=== PATIENT | female | born 1950 | race African-American/Black ===

== ENCOUNTER → 2016-12-23 | Outpatient (CLI) | payer BC, OTHER ==
[2016-12-23 15:15] LABS: ALANINE AMINOTRANSFERASE 18 U/L (9-52); ALBUMIN 4.1 g/dL (3.5-5.0); ALKALINE PHOSPHATASE 82 U/L (38-126); ANION GAP 12 (5-19); ASPARTATE AMINO TRANSFERASE 27 U/L (14-36); BILIRUBIN,DIRECT 0.3 mg/dL (0.0-0.4); BILIRUBIN,TOTAL 0.5 mg/dL (0.2-1.3); BLOOD UREA NITROGEN 22 mg/dL (7-20); CARBON DIOXIDE 22 mmol/L (22-30); CHLORIDE 102 mmol/L (98-107); CREATININE RESULT 0.99 mg/dL (0.52-1.25); GLUCOSE 196 mg/dL (75-110); POTASSIUM 5.1 mmol/L (3.6-5.0); SODIUM 136.3 mmol/L (137-145); TOTAL PROTEIN 7.2 g/dL (6.3-8.2)
[2016-12-25 08:38] LABS: CREATININE URINE 68.7 mg/dL (Not Estab.); MICROALBUMIN URINE 74.6 ug/mL (Not Estab.)
== END ==
LOC: CCC 14:33
DX: E11.9 Type 2 diabetes mellitus without complications (principal)
CPT/HCPCS: 36415; 80053; 82043; 82570; 83036

== ENCOUNTER 2017-02-04 18:28 | Emergency (ER) | payer MEDICARE, MEDICAID ==
--- NOTE | 2017-02-04 19:36 | RADIOLOGY REPORT (SQ) ---
EXAM DESCRIPTION: CHEST PA/LAT COMPLETED DATE/TIME: 02/04/2017 7:18 pm REASON FOR STUDY: near syncope COMPARISON: 08/15/2014 EXAM PARAMETERS: NUMBER OF VIEWS: two views TECHNIQUE: Digital Frontal and Lateral radiographic views of the chest acquired. RADIATION DOSE: NA LIMITATIONS: none FINDINGS: LUNGS AND PLEURA: No opacities, masses or pneumothorax. No pleural effusion. MEDIASTINUM AND HILAR STRUCTURES: No masses or contour abnormalities. HEART AND VASCULAR STRUCTURES: Heart normal size. No evidence for failure. BONES: No acute findings. HARDWARE: None in the chest. OTHER: No other significant finding. IMPRESSION: NO SIGNIFICANT RADIOGRAPHIC FINDING IN THE CHEST. TECHNICAL DOCUMENTATION: JOB ID: [id number] [employer]- All Rights Reserved
[2017-02-04] MEDS: NORMAL SALINE 1000 ML 1,000 ML IV PRN ×2 (19:38→19:41)
--- NOTE | 2017-02-04 20:19 | EKG REPORT ---
SEVERITY:- NORMAL ECG - SINUS RHYTHM : Confirmed by: Mauro Irvin MD 04-Feb-2017 20:18:47
[2017-02-04 20:50] LABS: ALANINE AMINOTRANSFERASE 45 U/L (9-52); ALBUMIN 4.4 g/dL (3.5-5.0); ALKALINE PHOSPHATASE 107 U/L (38-126); ANION GAP 15 (5-19); ASPARTATE AMINO TRANSFERASE 155 U/L (14-36); BILIRUBIN,DIRECT 0.6 mg/dL (0.0-0.4); BILIRUBIN,TOTAL 0.8 mg/dL (0.2-1.3); BLOOD UREA NITROGEN 23 mg/dL (7-20); CALCIUM 9.9 mg/dL (8.4-10.2); CARBON DIOXIDE 25 mmol/L (22-30); CHLORIDE 103 mmol/L (98-107); CREATINE KINASE 200 U/L (30-135); CREATININE RESULT 1.14 mg/dL (0.52-1.25); GLUCOSE 72 mg/dL (75-110); POTASSIUM 4.4 mmol/L (3.6-5.0); SODIUM 142.9 mmol/L (137-145); TOTAL PROTEIN 7.3 g/dL (6.3-8.2)
[2017-02-04 21:41] LABS: ABSOLUTE BASOPHILS # (AUTO) 0.1 10^3/uL (0.0-0.2); ABSOLUTE EOSINOPHILS # (AUTO) 0.1 10^3/uL (0.0-0.6); ABSOLUTE LYMPHOCYTES (AUTO) 1.2 10^3/uL (0.5-4.7); ABSOLUTE MONOCYTES (AUTO) 0.7 10^3/uL (0.1-1.4); ABSOLUTE NEUT (AUTO) 4.5 10^3/uL (1.7-8.2); EOSINOPHILS % (AUTO) 2.1 % (0-6); HEMATOCRIT 32.6 % (36.0-47.0); HEMOGLOBIN 10.1 g/dL (12.0-15.5); HGB HCT DIFFERENCE -2.3; LYMPHOCYTES % (AUTO) 18.4 % (13-45); MEAN CORPUSCULAR HEMOGLOBIN 27.5 pg (27.0-33.4); MEAN CORPUSCULAR HGB CONC 31.2 g/dL (32.0-36.0); MEAN CORPUSCULAR VOLUME 88 fl (80-97); MONOCYTES % (AUTO) 10.8 % (3-13); RED BLOOD COUNT 3.69 10^6/uL (3.72-5.28); RED CELL DISTRIBUTION WIDTH 14.7 % (11.5-14.0); SEGMENTED NEUTROPHILS % (AUTO) 67.7 % (42-78); WHITE BLOOD COUNT 6.7 10^3/uL (4.0-10.5)
--- NOTE | 2017-02-04 21:47 | ER Document Report ---
ED Dizziness/Weakness - General Chief Complaint: Dizziness Stated Complaint: DIZZY Time Seen by Provider: 02/04/17 18:51 Notes: The patient is a 66-year-old female, past medical history hypertension, IDDM, presents after she was at work at the [employer], when she fell slightly lightheaded. She sat down, drank water and felt better. When EMS arrived her blood pressure was 109/60 and when she stood up it was 90/50. Patient also had some mild epigastric pain that occurred after she ate lunch, but denies any chest pain, shortness of breath, leg swelling, syncope, nausea, vomiting, back pain, numbness, tingling, blurry visions, ataxia or focal weakness. TRAVEL OUTSIDE OF THE [place] IN LAST 30 DAYS: No - Related Data Allergies/Adverse Reactions: No Known Allergies Allergy (Verified 06/21/12 11:32) Past Medical History - General Information source: Patient - Social History Smoking Status: Current Some Day Smoker Chew tobacco use (# tins/day): No Frequency of alcohol use: Occasional Drug Abuse: None Family History: Reviewed & Not Pertinent - Past Medical History Cardiac Medical History: Reports: Hx Hypercholesterolemia, Hx Hypertension Endocrine Medical History: Reports: Hx Diabetes Mellitus Type 1, Hx Diabetes Mellitus Type 2 Skin Medical History: Reports Hx Cellulitis - Immunizations Immunizations up to date: Yes Hx Diphtheria, Pertussis, Tetanus Vaccination: Yes Review of Systems - Review of Systems Notes: REVIEW OF SYSTEMS: CONSTITUTIONAL: -fevers, -chills EENT: -eye pain, -difficulty swallowing, -nasal congestion CARDIOVASCULAR:-chest pain, -syncope. RESPIRATORY: -cough, -SOB GASTROINTESTINAL: +epigastric abdominal pain, - nausea, -vomiting, -diarrhea GENITOURINARY: -dysuria, -hematuria MUSCULOSKELETAL: -back pain, -neck pain SKIN: -rash or skin lesions. HEMATOLOGIC: -easy bruising or bleeding. LYMPHATIC: -swollen, enlarged glands. NEUROLOGICAL: -altered mental status or loss of consciousness, -headache, - neurologic symptoms PSYCHIATRIC: -anxiety, -depression. ALL OTHER SYSTEMS REVIEWED AND NEGATIVE. Physical Exam - Vital signs Vitals: Temp Pulse Resp BP Pulse Ox 97.7 F 63 20 143/65 H 98 02/04/17 18:37 02/04/17 18:37 02/04/17 18:37 02/04/17 18:37 02/04/17 18:37 - Notes Notes: PHYSICAL EXAMINATION: GENERAL: Well-appearing, well-nourished and in no acute distress. HEAD: Atraumatic, normocephalic. EYES: Pupils equal round and reactive to light, extraocular movements intact, sclera anicteric, conjunctiva are normal. ENT: nares patent, oropharynx clear without exudates. Moist mucous membranes. NECK: Normal range of motion, supple without lymphadenopathy LUNGS: Breath sounds clear to auscultation bilaterally and equal. No wheezes rales or rhonchi. HEART: Regular rate and rhythm without murmurs ABDOMEN: Soft, mild epigastric tenderness, normoactive bowel sounds. No guarding, no rebound. No masses appreciated. EXTREMITIES: Normal range of motion, no pitting or edema. No cyanosis. NEUROLOGICAL: Cranial nerves grossly intact. Normal speech, normal gait. Normal sensory and motor exams. PSYCH: Normal mood, normal affect. SKIN: Warm, Dry, normal turgor, no rashes or lesions noted. Course - Re-evaluation Re-evalutation: Patient appears very well. Her blood pressure after 2 L IV fluids has remained 140's-160's/80's-90's. She is completely asymptomatic at this time. Labs, chest x-ray, EKG and urine do not show any acute abnormality, other than slight evidence of dehydration. Her blood sugar is 72, but patient was fed while in the emergency room. Patient is low risk for serious outcomes using [place] Syncope Guidelines. Given very strict return precautions and she understands. She will follow-up with her primary care physician this week. - Vital Signs Vital signs: Temp Pulse Resp BP Pulse Ox 97.7 F 63 19 165/78 H 98 02/04/17 18:37 02/04/17 18:37 02/04/17 21:02 02/04/17 21:02 02/04/17 21:02 - Laboratory Result Diagrams: 02/04/17 21:11 02/04/17 20:28 Laboratory results interpreted by me: 02/04/17 02/04/17 20:28 21:11 RBC 3.69 L Hgb 10.1 L Hct 32.6 L MCHC 31.2 L RDW 14.7 H BUN 23 H Est GFR ( Amer) 58 L Est GFR (Non-Af Amer) 48 L Glucose 72 L Direct Bilirubin 0.6 H AST 155 H Creatine Kinase 200 H - Diagnostic Test Radiology reviewed: Image reviewed, Reports reviewed Radiology results interpreted by me: CXR: NAD - EKG Interpretation by Me EKG shows normal: Sinus rhythm, [place], Intervals, QRS Complexes, ST-T Waves Rate: Normal Discharge - Discharge Clinical Impression: Light-headed feeling Condition: Stable Disposition: HOME, SELF-CARE Additional Instructions: SYNCOPAL EPISODE: Syncope (fainting or near-fainting) can occur from many different health problems. Or it can be a simple fainting spell requiring no treatment. It is safe for you to go home, but further evaluation will likely be necessary. Your work-up may include tests for internal bleeding, heart disease, medication problems, or near-strokes. Tests are not always required, however, depending on the nature of your problem. The warning signs of an impending faint include: dizziness, lightheadedness , nausea, hot flashes, tingling, and weakness. If this happens, lay down and put your feet up, then wait until all of these symptoms have passed before standing up again. If these episodes become recurrent, or if you develop chest pain, heart palpitations, mental confusion, blurred vision, or headache, then you should call the physician, or go to the emergency room. NEAR SYNCOPAL EPISODE: Syncope or near syncope (fainting or near-fainting) can occur from many different health problems. Or it can be a simple fainting spell requiring no treatment. It is safe for you to go home, but further evaluation will likely be necessary. Your work-up may include tests for internal bleeding, heart disease, medication problems, or near-strokes. Tests are not always required, however, depending on the nature of your problem. The warning signs of an impending faint include: dizziness, lightheadedness , nausea, hot flashes, tingling, and weakness. If this happens, lay down and put your feet up, then wait until all of these symptoms have passed before standing up again. If these episodes become recurrent, or if you develop chest pain, heart palpitations, mental confusion, blurred vision, or headache, then you should call the physician, or go to the emergency room. NORMAL EXAM AND WORKUP: At this time, your examination and workup show no significant abnormality. No significant abnormal physical findings were noted. All laboratory, EKG, and imaging (x-ray, CT scans, ultrasound) studies that were ordered show no significant abnormality. Although your examination and all studies that were ordered showed no significant abnormal finding, there are no examinations and no studies that are 100% accurate. There is always the possibility that some abnormality could exist and not be detected with physical examination or within the limits and capabilities of laboratory and other studies. You should return or follow up as you were instructed on your visit today for further evaluation if your symptoms do not resolve. FOLLOW-UP CARE: If you have been referred to a physician for follow-up care, call the physician s office for an appointment as you were instructed or within the next two days. If you experience worsening or a significant change in your symptoms, notify the physician immediately or return to the Emergency Department at any time for re-evaluation. Forms: Elevated Blood Pressure
[2017-02-04 22:11] VITALS: BP 162/75
== END 2017-02-04 22:22 | disposition home or self-care (01) ==
LOC: ER 18:28
DX: R42 Dizziness and giddiness (principal); R10.13 Epigastric pain; E11.9 Type 2 diabetes mellitus without complications; Z79.4 Long term (current) use of insulin; I10 Essential (primary) hypertension; E78.00 Pure hypercholesterolemia, unspecified
CPT/HCPCS: 93005; 99284; 96360; 36415; 82550; 85025; 80053; 84484; 71020; 93010; J7030

== ENCOUNTER 2018-02-28 12:57 | Emergency (ER) | payer MEDICARE, MEDICAID ==
[2018-02-28] MEDS ORDERED: NORMAL SALINE 1000 ML 1,000 ML IV ONE (14:17)
[2018-02-28] MEDS ORDERED: DIPHENHYDRAMINE HCL 50 MG/ML VIAL IV ONE (14:17)
--- NOTE | 2018-02-28 14:19 | ER Document Report ---
ED Medical Screen (RME) - General TRAVEL OUTSIDE OF THE [place] IN LAST 30 DAYS: No <MARGOT DUMONT - Last Filed: 02/28/18 14:18> <ENEIDA MANZANARES - Last Filed: 02/28/18 19:06> - General Chief Complaint: Facial Swelling Stated Complaint: SHORTNESS OF BREATH Time Seen by Provider: 02/28/18 14:16 Notes: 68 years old male took 1 dose of metronidazole the next day started to swell up on the left side of the face and lips. Therefore present to the ED with difficulty in breathing wheezing. Also having abdominal pain no nausea vomiting. (MARGOT DUMONT) - Related Data Allergies/Adverse Reactions: No Known Allergies Allergy (Verified 02/28/18 13:01) Past Medical History - Social History Chew tobacco use (# tins/day): No Frequency of alcohol use: Occasional Drug Abuse: None - Past Medical History Cardiac Medical History: Reports: Hx Hypercholesterolemia, Hx Hypertension Endocrine Medical History: Reports: Hx Diabetes Mellitus Type 1, Hx Diabetes Mellitus Type 2 Renal/ Medical History: Denies: Hx Peritoneal Dialysis Skin Medical History: Reports Hx Cellulitis - Immunizations Immunizations up to date: Yes Hx Diphtheria, Pertussis, Tetanus Vaccination: Yes <MARGOT DUMONT - Last Filed: 02/28/18 14:18> - Vital signs Vitals: Temp Pulse Resp BP Pulse Ox 98.8 F 75 18 141/55 H 95 02/28/18 13:02 02/28/18 13:02 02/28/18 13:02 02/28/18 13:02 02/28/18 13:02 Course <MARGOT DUMONT - Last Filed: 02/28/18 14:18> - Laboratory Result Diagrams: 02/28/18 15:45 02/28/18 15:45 - Diagnostic Test Radiology reviewed: Reports reviewed - EKG Interpretation by Me EKG shows normal: Sinus rhythm Rate: Normal Rhythm: NSR - Normal axis and intervals. <ENEIDA MANZANARES - Last Filed: 02/28/18 19:06> - Re-evaluation Re-evalutation: 02/28/18 18:46 Patient presented with multiple medical complaints including having redness between her upper medial thighs which on exam was consistent with a yeast infection. Nystatin was provided and she was instructed to use twice a day until resolution. More concerning she had signs and symptoms that appear consistent with angioedema that started after taking metronidazole that was prescribed by her family doctor for this yeast infection although not proper medication for yeast. She is also on an KARISHMA inhibitor she has taken for years. I discussed to discontinue the metronidazole and explained if her symptoms were to continue then likely her KARISHMA inhibitor is causing this as it is known a side effect and she should return immediately to the emergency department for evaluation. She also states that she has been having shortness of breath and on further discussion she states that is been going on for approximately 1 month and she has had bouts of black tarry stools although her fecal occult was negative today. Her hemoglobin has dropped to 7.3 which is approximately 3 points from her baseline. Upon initial evaluation she states that she had recently been flying to [place] and then to [place] so there was concern about blood clots D-dimer test was positive so CTA chest was performed. This was prior to knowing about any dark tarry stools and shortness of breath lasting for over a month. Her travel was only approximately 2 weeks ago. Therefore, her symptoms were present prior to her travel. The CTA was inconclusive due to poor timing of contrast and radiologist recommended re-imaging but there was concern about possible kidney injury for re -contrast in such a short timeframe. After further history taking I do not feel patient's symptoms are consistent with pulmonary embolism as she is not hypoxic she does not have any pleuritic chest pain she is not hypotensive she is not tachycardic. Her symptoms of also been going on for approximately a month and her travel was approximately 2 weeks ago. I feel the risks outweigh the benefit of re-contrast of the patient given her age. Also, if she had any minor clot burden feel like risks would outweigh the rewards of blood thinners with concerns for GI bleed. Findings on CT do show gastric thickening concern for possible neoplasm. Patient was also found to have microcytic anemia, and iron panel was run which showed very low iron levels. Findings of CTA were provided to patient and need for endoscopy was discussed. Discussion was also provided regarding imaging and patient agrees to this plan. Will provide GI referral as well as iron supplementation and Zantac. She is to follow-up with her primary care physician next week to let them know of her emergency department stay. Discussed if she has worsening shortness of breath or any other concerns return to the emergency department for further reevaluation. (ENEIDA MANZANARES) - Vital Signs Vital signs: Temp Pulse Resp BP Pulse Ox 98.8 F 75 22 H 161/105 H 87 L 02/28/18 13:02 02/28/18 13:02 02/28/18 17:02 02/28/18 17:02 02/28/18 17:02 - Laboratory Laboratory results interpreted by me: 02/28/18 02/28/18 02/28/18 15:45 15:45 15:45 RBC 2.93 L Hgb 7.4 L Hct 22.8 L MCV 78 L MCH 25.4 L RDW 17.0 H Retic Count (auto) D-Dimer 2.07 H Sodium 134.0 L Est GFR (Non-Af Amer) 54 L Glucose 186 H Calcium 10.8 H Iron Ferritin Direct Bilirubin 0.6 H Alkaline Phosphatase 145 H Urine Glucose (UA) Urine Ketones 02/28/18 02/28/18 02/28/18 15:45 15:45 17:51 RBC Hgb Hct MCV MCH RDW Retic Count (auto) 2.99 H D-Dimer Sodium Est GFR (Non-Af Amer) Glucose Calcium Iron 19.9 L Ferritin 6.41 L Direct Bilirubin Alkaline Phosphatase Urine Glucose (UA) >=500 H Urine Ketones 20 H Doctor's Discharge <MARGOT DUMONT - Last Filed: 02/28/18 14:18> <ENEIDA MANZANARES - Last Filed: 02/28/18 19:06> - Discharge Clinical Impression: Microcytic anemia, Shortness of breath, Gastric wall thickening Disposition: HOME, SELF-CARE Instructions: Anemia, Iron Deficiency ([facility]), Gastritis ([facility]) Additional Instructions: Per discussion, take all medications as prescribed Follow up with your primary care doctor next week for reevaluation Please call building maintenance superintendent referral to schedule appointment as soon as possible for evaluation of gastric wall thickening found on CT today. Please return to the emergency department for any worsening of symptoms or concerns Prescriptions: Ferrous Sulfate 325 mg PO BID #60 tablet Ranitidine HCl [Zantac] 150 mg PO BID #60 tablet Referrals: YODIT SARABIA MD [ACTIVE STAFF] - Follow up as needed
--- NOTE | 2018-02-28 15:09 | RADIOLOGY REPORT (SQ) ---
EXAM DESCRIPTION: ACUTE ABDOMEN SERIES COMPLETED DATE/TIME: 02/28/2018 2:43 pm REASON FOR STUDY: Abdominal pain COMPARISON: None. NUMBER OF VIEWS: Three views. TECHNIQUE: Frontal chest, supine abdomen and upright/decubitus abdomen radiographic images acquired. LIMITATIONS: None. FINDINGS: CHEST: Lungs clear of infiltrates. FREE AIR: None. No abnormal gas collections. BOWEL GAS PATTERN: Nonobstructive pattern. No dilated loops or air fluid levels. CALCIFICATIONS: No suspicious calcifications. HARDWARE: None in the abdomen. SOFT TISSUES: No gross mass or suggestion of organomegaly. BONES: No acute fracture. No worrisome bone lesions. OTHER: No other significant finding. IMPRESSION: NO RADIOGRAPHIC EVIDENCE FOR ACUTE ABDOMINAL DISEASE. TECHNICAL DOCUMENTATION: JOB ID: [id number] [employer]- All Rights Reserved Reading location - IP/workstation name: [email or web address]
[2018-02-28] MEDS ORDERED: NYSTATIN OINTMENT 15 GM TUBE TP ONE (15:36)
[2018-02-28 16:01] LABS: ABSOLUTE EOSINOPHILS # (AUTO) 0.3 10^3/uL (0.0-0.6); ABSOLUTE LYMPHOCYTES (AUTO) 2.1 10^3/uL (0.5-4.7); ABSOLUTE MONOCYTES (AUTO) 0.9 10^3/uL (0.1-1.4); ABSOLUTE NEUT (AUTO) 6.1 10^3/uL (1.7-8.2); BASOPHILS % (AUTO) 0.5 % (0-2); EOSINOPHILS % (AUTO) 2.7 % (0-6); HEMATOCRIT 22.8 % (36.0-47.0); LYMPHOCYTES % (AUTO) 22.1 % (13-45); MEAN CORPUSCULAR HEMOGLOBIN 25.4 pg (27.0-33.4); MEAN CORPUSCULAR HGB CONC 32.5 g/dL (32.0-36.0); MEAN CORPUSCULAR VOLUME 78 fl (80-97); MONOCYTES % (AUTO) 9.6 % (3-13); PLATELET COUNT 405 10^3/uL (150-450); RED BLOOD COUNT 2.93 10^6/uL (3.72-5.28); SEGMENTED NEUTROPHILS % (AUTO) 65.1 % (42-78); TOTAL CELLS COUNTED % (AUTO) 100 %; WHITE BLOOD COUNT 9.4 10^3/uL (4.0-10.5)
[2018-02-28 16:05] LABS: HEMOGLOBIN 7.4 g/dL (12.0-15.5)
[2018-02-28 16:18] LABS: ALANINE AMINOTRANSFERASE 22 U/L (9-52); ALBUMIN 3.9 g/dL (3.5-5.0); ALKALINE PHOSPHATASE 145 U/L (38-126); ANION GAP 14 (5-19); ASPARTATE AMINO TRANSFERASE 28 U/L (14-36); BILIRUBIN,DIRECT 0.6 mg/dL (0.0-0.4); BILIRUBIN,TOTAL 0.7 mg/dL (0.2-1.3); BLOOD UREA NITROGEN 20 mg/dL (7-20); CALCIUM 10.8 mg/dL (8.4-10.2); CARBON DIOXIDE 22 mmol/L (22-30); CHLORIDE 98 mmol/L (98-107); GLUCOSE 186 mg/dL (75-110); LIPASE 129.7 U/L (23-300); TOTAL PROTEIN 7.2 g/dL (6.3-8.2)
[2018-02-28 16:29] LABS: NT PRO BNP 231 pg/mL (5-900)
[2018-02-28] MEDS ORDERED: NORMAL SALINE 500 ML IV ONE (16:31)
[2018-02-28 16:35] LABS: TROPONIN I < 0.012 ng/mL
[2018-02-28 16:44] LABS: ABSOLUTE RETICS # 0.088 10^6/uL (0.028-0.122); RETICULOCYTE COUNT (AUTO) 2.99 % (0.66-2.85)
[2018-02-28 16:49] LABS: IRON(TIBC) 19.9 ug/dL (37-170)
[2018-02-28 17:26] LABS: FERRITIN 6.41 ng/mL (11.1-264.0)
[2018-02-28 18:17] LABS: APPEARANCE,URINE CLEAR; BILIRUBIN,URINE NEGATIVE (NEGATIVE); COLOR,URINE STRAW; GLUCOSE, URINE >=500 mg/dL (NEGATIVE); KETONES,URINE 20 mg/dL (NEGATIVE); LEUKOCYTE ESTERASE,URINE NEGATIVE (NEGATIVE); NITRITE,URINE NEGATIVE (NEGATIVE); PROTEIN,URINE NEGATIVE (NEGATIVE); URINE SPECIFIC GRAVITY 1.015; UROBILINOGEN,URINE NEGATIVE mg/dL (<2.0)
--- NOTE | 2018-02-28 18:18 | RADIOLOGY REPORT (SQ) ---
EXAM DESCRIPTION: CTA CHEST COMPLETED DATE/TIME: 02/28/2018 6:04 pm REASON FOR STUDY: SOB, + d-dimer COMPARISON: None. TECHNIQUE: CT scan of the chest performed using helical scanning technique with dynamic intravenous contrast injection. Images reviewed with lung, soft tissue and bone windows. Reconstructed coronal and sagittal MPR images reviewed. Additional 3 dimensional post-processing performed to develop Maximal Intensity Projection images (GA P). All images stored on PACS. All CT scanners at this facility use dose modulation, iterative reconstruction, and/or weight based d osing when appropriate to reduce radiation dose to as low as reasonably achievable (ALARA). [facility]: Dose Right [facility]: CareDose [facility]: Dose Right [facility]: Teradose 4D [facility]: Soshowise CONTRAST TYPE AND DOSE: contrast/concentration: Isovue 350.00 mg/ml; Total Contrast Delivered: 75.0 ml; Total Saline Delivered: 70.0 ml Contrast bolus optimized for the pulmonary arteries. Not diagnostic for the aorta. RENAL FUNCTION: BUN 20, creatinine 1.03 RADIATION DOSE: CT Rad equipment meets quality standard of care and radiation dose reduction techniq ues were employed. CTDIvol: 19.8 - 25.1 mGy. DLP: 919 mGy-cm. . LIMITATIONS: None. FINDINGS: LUNGS AND PLEURA: No masses, infiltrates, or pneumothorax. No pleural effusions or pleura l calcifications. AORTA AND GREAT VESSELS: No aneurysm. Contrast bolus not optimized for the aorta. HEART: No pericardial effusion. No significant coronary artery calcifications. PULMONARY ARTERIES: The pulmonary arteries are unfortunately are not opacified. Pulmonary emboli can not be excluded. Repeat study is recommended. HILAR AND MEDIASTINAL STRUCTURES: No identified masses or abnormal nodes. HARDWARE: None in the chest. UPPER ABDOMEN: There is marked thickening of the gastric wall. This could represent infectious or in flammatory process. Neoplasm cannot be excluded. THYROID AND OTHER SOFT TISSUES: No masses. No adenopathy. BONES: No acute or significant finding. 3D MIPS: Confirm above findings. OTHER: No other significant finding. IMPRESSION: 1. The study is nondiagnostic for pulmonary emboli. The pulmonary arteries are only fa intly opacified. Repeat study is recommended. 2. Marked thickening of the gastric wall this involves the body of the stomach and pyloric channel. This could represent infectious or inflammatory process. Neoplasm cannot be excluded. COMMENT: Quality ID # [id number]: Final reports with documentation of one or more dose reduction techniques (e.g., Automated exposure control, adjustment of the mA and/or kV according to patient size, use of iterative reconstruction technique) TECHNICAL DOCUMENTATION: JOB ID: [id number] [employer]- All Rights Reserved Reading location - IP/workstation name: [email or web address]
[2018-02-28 19:27] VITALS: BP 132/80
--- NOTE | 2018-03-01 08:56 | EKG REPORT ---
SEVERITY:- NORMAL ECG - SINUS RHYTHM : Confirmed by: Christina Membreno 01-Mar-2018 08:55:56
--- NOTE | 2018-03-01 20:06 | ER Document Report ---
ED Respiratory Problem - General Mode of Arrival: Ambulatory Information source: Patient TRAVEL OUTSIDE OF THE [place] IN LAST 30 DAYS: No <ADAN GILL - Last Filed: 03/01/18 20:06> <ENEIDA MANZANARES - Last Filed: 03/01/18 22:06> - General Chief Complaint: Facial Swelling Stated Complaint: SHORTNESS OF BREATH Time Seen by Provider: 02/28/18 14:16 Notes: 68-year-old female who presents to the emergency department today with complaints of a rash to her bilateral medial upper thighs along with facial swelling. Patient states that she was seen by her PCP for this rash who started her on Flagyl. Patient states that after taking a dosage of the Flagyl she noticed facial swelling. Patient goes on to mention that she has had some shortness of breath over the last 2-1/2 weeks. Patient states this all started about the time she was going on vacation x2.5 weeks ago. Patient states she flew to [place] and stayed there for a week, then flew to [place] to stay there for a week, and then returned home. Patient states she was seen at an urgent care in [place] and was put on ampicillin and steroids. Patient denies history of PE/DVT. (ADAN GILL) - Related Data Allergies/Adverse Reactions: No Known Allergies Allergy (Verified 02/28/18 13:01) Past Medical History - General Information source: Patient - Social History Smoking Status: Current Every Day Smoker Cigarette use (# per day): Yes Chew tobacco use (# tins/day): No Frequency of alcohol use: Occasional Drug Abuse: None Lives with: Family Family History: Reviewed & Not Pertinent Patient has suicidal ideation: No Patient has homicidal ideation: No - Past Medical History Cardiac Medical History: Reports: Hx Hypercholesterolemia, Hx Hypertension Endocrine Medical History: Reports: Hx Diabetes Mellitus Type 1, Hx Diabetes Mellitus Type 2 Renal/ Medical History: Denies: Hx Peritoneal Dialysis Skin Medical History: Reports Hx Cellulitis - Immunizations Immunizations up to date: Yes Hx Diphtheria, Pertussis, Tetanus Vaccination: Yes <ADAN GILL - Last Filed: 03/01/18 20:06> Review of Systems - Review of Systems Constitutional: No symptoms reported EENT: See HPI, Other - Facial swelling Cardiovascular: No symptoms reported Respiratory: See HPI, Short of breath Gastrointestinal: No symptoms reported Genitourinary: No symptoms reported Female Genitourinary: No symptoms reported Musculoskeletal: No symptoms reported Skin: See HPI, Rash Hematologic/Lymphatic: No symptoms reported Neurological/Psychological: No symptoms reported -: Yes All other systems reviewed and negative <ADAN GILL - Last Filed: 03/01/18 20:06> Physical Exam <ADAN GILL - Last Filed: 03/01/18 20:06> <ENEIDA MANZANARES - Last Filed: 03/01/18 22:06> - Vital signs Vitals: Temp Pulse Resp BP Pulse Ox 98.8 F 75 18 141/55 H 95 02/28/18 13:02 02/28/18 13:02 02/28/18 13:02 02/28/18 13:02 02/28/18 13:02 - Notes Notes: Physical Exam: General: Alert, appears well. HEENT: Normocephalic. Atraumatic. PERRL. Extraocular movements intact. Oropharynx clear. Some mild diffuse left-sided facial swelling. Neck: Supple. Non-tender. Respiratory: No respiratory distress. Clear and equal breath sounds bilaterally. No stridor. Cardiovascular: 2/6 systolic ejection murmur, regular rate and rhythm. Abdominal: Normal Inspection. Non-tender. No distension. Normal Bowel Sounds. Back: Non-tender. No deformity or step off. Extremities: Moves all four extremities. Upper extremities: Normal inspection. Normal ROM. Lower extremities: Trace edema bilaterally. Normal ROM. Neurological: Normal cognition. AAOx4. Normal speech. Psychological: Normal affect. Normal Mood. Skin: Upper medial thighs are beefy and red consistent with Lisandra (ADAN GILL) Course - Laboratory Result Diagrams: 02/28/18 15:45 02/28/18 15:45 <ADAN GILL - Last Filed: 03/01/18 20:06> - Laboratory Result Diagrams: 02/28/18 15:45 02/28/18 15:45 <ENEIDA MANZANARES - Last Filed: 03/01/18 22:06> - Re-evaluation Re-evalutation: 02/28/18 18:46 Patient presented with multiple medical complaints including having redness between her upper medial thighs which on exam was consistent with a yeast infection. Nystatin was provided and she was instructed to use twice a day until resolution. More concerning she had signs and symptoms that appear consistent with angioedema that started after taking metronidazole that was prescribed by her family doctor for this yeast infection although not proper medication for yeast. She is also on an KARISHMA inhibitor she has taken for years. I discussed to discontinue the metronidazole and explained if her symptoms were to continue then likely her KARISHMA inhibitor is causing this as it is known a side effect and she should return immediately to the emergency department for evaluation. She also states that she has been having shortness of breath and on further discussion she states that is been going on for approximately 1 month and she has had bouts of black tarry stools although her fecal occult was negative today. Her hemoglobin has dropped to 7.3 which is approximately 3 points from her baseline. Upon initial evaluation she states that she had recently been flying to [place] and then to [place] so there was concern about blood clots D-dimer test was positive so CTA chest was performed. This was prior to knowing about any dark tarry stools and shortness of breath lasting for over a month. Her travel was only approximately 2 weeks ago. Therefore, her symptoms were present prior to her travel. The CTA was inconclusive due to poor timing of contrast and radiologist recommended re-imaging but there was concern about possible kidney injury for re -contrast in such a short timeframe. After further history taking I do not feel patient's symptoms are consistent with pulmonary embolism as she is not hypoxic she does not have any pleuritic chest pain she is not hypotensive she is not tachycardic. Her symptoms of also been going on for approximately a month and her travel was approximately 2 weeks ago. I feel the risks outweigh the benefit of re-contrast of the patient given her age. Also, if she had any minor clot burden feel like risks would outweigh the rewards of blood thinners with concerns for GI bleed. Findings on CT do show gastric thickening concern for possible neoplasm. Patient was also found to have microcytic anemia, and iron panel was run which showed very low iron levels. Findings of CTA were provided to patient and need for endoscopy was discussed. Discussion was also provided regarding imaging and patient agrees to this plan. Will provide GI referral as well as iron supplementation and Zantac. She is to follow-up with her primary care physician next week to let them know of her emergency department stay. Discussed if she has worsening shortness of breath or any other concerns return to the emergency department for further reevaluation. (ADAN GILL) 03/01/18 22:04 Patient did not have any signs of angioedema at discharge. (ENEIDA MANZANARES) - Vital Signs Vital signs: Temp Pulse Resp BP Pulse Ox 98.1 F 75 18 132/80 H 100 02/28/18 19:27 02/28/18 13:02 02/28/18 19:00 02/28/18 19:27 02/28/18 19:00 - Laboratory Laboratory results interpreted by me: 02/28/18 02/28/18 02/28/18 15:45 15:45 15:45 RBC 2.93 L Hgb 7.4 L Hct 22.8 L MCV 78 L MCH 25.4 L RDW 17.0 H Retic Count (auto) D-Dimer 2.07 H Sodium 134.0 L Est GFR (Non-Af Amer) 54 L Glucose 186 H Calcium 10.8 H Iron Ferritin Direct Bilirubin 0.6 H Alkaline Phosphatase 145 H Urine Glucose (UA) Urine Ketones 02/28/18 02/28/18 02/28/18 15:45 15:45 17:51 RBC Hgb Hct MCV MCH RDW Retic Count (auto) 2.99 H D-Dimer Sodium Est GFR (Non-Af Amer) Glucose Calcium Iron 19.9 L Ferritin 6.41 L Direct Bilirubin Alkaline Phosphatase Urine Glucose (UA) >=500 H Urine Ketones 20 H Discharge <ADAN GILL - Last Filed: 03/01/18 20:06> <ENEIDA MANZANARES - Last Filed: 03/01/18 22:06> - Discharge Clinical Impression: Microcytic anemia, Shortness of breath, Gastric wall thickening Disposition: HOME, SELF-CARE Instructions: Anemia, Iron Deficiency ([facility]), Gastritis ([facility]) Additional Instructions: Per discussion, take all medications as prescribed Follow up with your primary care doctor next week for reevaluation Please call open tenter operator referral to schedule appointment as soon as possible for evaluation of gastric wall thickening found on CT today. Please return to the emergency department for any worsening of symptoms or concerns Prescriptions: Ferrous Sulfate 325 mg PO BID #60 tablet Ranitidine HCl [Zantac] 150 mg PO BID #60 tablet Referrals: YODIT SARABIA MD [ACTIVE STAFF] - Follow up as needed Scribe Attestation: 03/01/18 22:06 I personally performed the services described in the documentation, reviewed and edited the documentation which was dictated to the scribe in my presence, and it accurately records my words and actions. (ENEIDA MANZANARES) Scribe Documentation - Scribe Written by Scribe:: Vibha Hermosillo, 02/28/20181999 acting as scribe for :: Angelo <ADAN GILL - Last Filed: 03/01/18 20:06>
== END 2018-02-28 19:28 | disposition home or self-care (01) ==
LOC: ER 12:57
DX: D50.9 Iron deficiency anemia, unspecified (principal); R06.02 Shortness of breath; R79.1 Abnormal coagulation profile; R19.8 Other specified symptoms and signs involving the digestive system and abdomen; R21 Rash and other nonspecific skin eruption; R22.0 Localized swelling, mass and lump, head; F17.210 Nicotine dependence, cigarettes, uncomplicated; E11.9 Type 2 diabetes mellitus without complications; I10 Essential (primary) hypertension; R01.1 Cardiac murmur, unspecified; R19.5 Other fecal abnormalities; Z79.899 Other long term (current) drug therapy
CPT/HCPCS: 93005; 99285; 96361; 96374; 36415; 82607; 82728; 82746; 83540; 83550; 83690; 85025; 82272; 85045; 80053; 81001; 84484; 85379; 83880; 74022; 71275; 93010; J1200; J3490

== ENCOUNTER → 2018-03-15 | Outpatient (CLI) | payer MEDICARE, MEDICAID ==
[2018-03-15 17:05] LABS: HEMATOCRIT 25.7 % (36.0-47.0); HEMOGLOBIN 8.5 g/dL (12.0-15.5); MEAN CORPUSCULAR HGB CONC 32.9 g/dL (32.0-36.0); MEAN CORPUSCULAR VOLUME 79 fl (80-97); PLATELET COUNT 519 10^3/uL (150-450); RED BLOOD COUNT 3.25 10^6/uL (3.72-5.28); RED CELL DISTRIBUTION WIDTH 20.3 % (11.5-14.0); WHITE BLOOD COUNT 8.7 10^3/uL (4.0-10.5)
== END ==
LOC: LAB 15:58
PROVIDERS: ATTEND Physician Assistant Surgical
DX: D50.0 Iron deficiency anemia secondary to blood loss (chronic) (principal)
CPT/HCPCS: 36415; 85027

== ENCOUNTER → 2018-03-28 | Outpatient (CLI) | payer MEDICARE, MEDICAID ==
[2018-03-28 12:40] LABS: HEMATOCRIT 30.2 % (36.0-47.0); HEMOGLOBIN 9.5 g/dL (12.0-15.5); MEAN CORPUSCULAR HEMOGLOBIN 25.9 pg (27.0-33.4); MEAN CORPUSCULAR HGB CONC 31.5 g/dL (32.0-36.0); MEAN CORPUSCULAR VOLUME 82 fl (80-97); PLATELET COUNT 373 10^3/uL (150-450); RED BLOOD COUNT 3.67 10^6/uL (3.72-5.28); RED CELL DISTRIBUTION WIDTH 20.8 % (11.5-14.0); WHITE BLOOD COUNT 6.2 10^3/uL (4.0-10.5)
--- NOTE | 2018-03-28 12:42 | RADIOLOGY REPORT (SQ) ---
EXAM DESCRIPTION: CHEST 2 VIEWS COMPLETED DATE/TIME: 03/28/2018 12:23 pm REASON FOR STUDY: SOB/COUGH COMPARISON: 02/04/2017. EXAM PARAMETERS: NUMBER OF VIEWS: two views TECHNIQUE: Digital Frontal and Lateral radiographic views of the chest acquired. RADIATION DOSE: NA LIMITATIONS: none FINDINGS: LUNGS AND PLEURA: Mild scarring in the lung bases. No infiltrates, masses or pneumothorax . No pleural effusion. MEDIASTINUM AND HILAR STRUCTURES: No masses or contour abnormalities. HEART AND VASCULAR STRUCTURES: Heart normal size. No evidence for failure. BONES: No acute findings. HARDWARE: None in the chest. OTHER: No other significant finding. IMPRESSION: NO ACUTE RADIOGRAPHIC FINDING IN THE CHEST. TECHNICAL DOCUMENTATION: JOB ID: [id number] [employer]- All Rights Reserved Reading location - IP/workstation name: [email or web address]
== END ==
LOC: RAD 12:08
PROVIDERS: ATTEND Family Medicine
DX: R05 Cough (principal); R06.2 Wheezing; D64.9 Anemia, unspecified
CPT/HCPCS: 36415; 71046; 85027

== ENCOUNTER → 2018-05-28 | Outpatient (CLI) | payer MEDICARE, MEDICAID ==
[2018-05-28 14:45] LABS: HEMATOCRIT 36.2 % (36.0-47.0); HEMOGLOBIN 11.8 g/dL (12.0-15.5); MEAN CORPUSCULAR HEMOGLOBIN 26.6 pg (27.0-33.4); MEAN CORPUSCULAR HGB CONC 32.4 g/dL (32.0-36.0); MEAN CORPUSCULAR VOLUME 82 fl (80-97); PLATELET COUNT 182 10^3/uL (150-450); RED BLOOD COUNT 4.42 10^6/uL (3.72-5.28); RED CELL DISTRIBUTION WIDTH 17.8 % (11.5-14.0)
== END ==
LOC: OD 13:53
PROVIDERS: ATTEND Internal Medicine Gastroenterology
DX: D50.0 Iron deficiency anemia secondary to blood loss (chronic) (principal); K26.9 Duodenal ulcer, unspecified as acute or chronic, without hemorrhage or perforation
CPT/HCPCS: 36415; 82728; 85027; 86677

== ENCOUNTER → 2019-02-14 | Outpatient (CLI) | payer MEDICARE, MEDICAID ==
--- NOTE | 2019-02-14 15:53 | RADIOLOGY REPORT (SQ) ---
EXAM DESCRIPTION: KNEE RIGHT 4 VIEWS COMPLETED DATE/TIME: 02/14/2019 2:15 pm REASON FOR STUDY: M25.561 PAIN IN RIGHT KNEE M25.561 PAIN IN RIGHT KNEE M25.562 PAIN IN LEFT KNEE M75.52 BURSITIS OF LEFT SHOULDER COMPARISON: None. NUMBER OF VIEWS: Four views. TECHNIQUE: AP, lateral, and both oblique radiographic images acquired of the right knee. LIMITATIONS: None. FINDINGS: MINERALIZATION: Normal. BONES: No acute fracture or dislocation. No worrisome bone lesions. JOINT: Minimal posterior patellar osteophytes. SOFT TISSUES: No soft tissue swelling. No radio-opaque foreign body. OTHER: No other significant finding. IMPRESSION: Minimal patellofemoral degenerative joint changes. TECHNICAL DOCUMENTATION: JOB ID: [id number] [email or web address]- All Rights Reserved Reading location - IP/workstation name: [email or web address]
--- NOTE | 2019-02-14 15:53 | RADIOLOGY REPORT (SQ) ---
EXAM DESCRIPTION: KNEE LEFT 4 VIEW COMPLETED DATE/TIME: 02/14/2019 2:15 pm REASON FOR STUDY: M25.562 PAIN IN LEFT KNEE M25.561 PAIN IN RIGHT KNEE M25.562 PAIN IN LEFT KNEE M 75.52 BURSITIS OF LEFT SHOULDER COMPARISON: None. NUMBER OF VIEWS: Four views. TECHNIQUE: AP, lateral, and both oblique radiographic images acquired of the left knee. LIMITATIONS: None. FINDINGS: MINERALIZATION: Normal. BONES: No acute fracture or dislocation. No worrisome bone lesions. JOINT: Small posterior patellar and trochlear osteophytes. SOFT TISSUES: No soft tissue swelling. No radio-opaque foreign body. OTHER: No other significant finding. IMPRESSION: Mild patellofemoral degenerative joint changes. TECHNICAL DOCUMENTATION: JOB ID: [id number] [employer]- All Rights Reserved Reading location - IP/workstation name: [email or web address]
--- NOTE | 2019-02-14 15:54 | RADIOLOGY REPORT (SQ) ---
EXAM DESCRIPTION: SHOULDER LEFT 2 OR MORE VIEWS COMPLETED DATE/TIME: 02/14/2019 2:15 pm REASON FOR STUDY: M75.52 BURSITIS OF LEFT SHOULDER M25.561 PAIN IN RIGHT KNEE M25.562 PAIN IN LEFT KNEE M75.52 BURSITIS OF LEFT SHOULDER COMPARISON: None. NUMBER OF VIEWS: Three views. TECHNIQUE: Internal rotation, external rotation, and Y view images acquired of the left shoulder. LIMITATIONS: None. FINDINGS: MINERALIZATION: Normal. BONES: No acute fracture. No worrisome bone lesions. JOINTS: No dislocation. VISUALIZED LUNGS AND RIBS: No pneumothorax. No rib fracture. SOFT TISSUES: No radiopaque foreign body. OTHER: No other significant finding. IMPRESSION: NEGATIVE STUDY OF THE LEFT SHOULDER. NO RADIOGRAPHIC EVIDENCE OF ACUTE INJURY. TECHNICAL DOCUMENTATION: JOB ID: [id number]- All Rights Reserved Reading location - IP/workstation name: [email or web address]
== END ==
LOC: RAD 13:40
PROVIDERS: ATTEND Family Medicine
DX: M25.561 Pain in right knee (principal); M25.562 Pain in left knee; M75.52 Bursitis of left shoulder